=== PATIENT | female | born 1955 | race American Indian/Alaskan Native ===

== ENCOUNTER 2016-07-24 09:34 | Emergency (ER) | payer MEDICAID, OTHER, SELFPAY ==
[2016-07-24 09:39] VITALS: TEMP 98.3; BMI 39.0
--- NOTE | 2016-07-24 13:02 | C.PDOC ---
Time Seen by Provider: 07/24/16 09:58 Chief Complaint (Nursing): ENT Problem Past Medical History Vital Signs: Last Vital Signs Temp 98.3 F 07/24/16 09:39 Pulse 82 07/24/16 09:39 Resp 18 07/24/16 09:39 BP 159/84 H 07/24/16 09:39 Pulse Ox 100 07/24/16 09:39 - Medical History PMH: Asthma, HTN - Social History Hx Alcohol Use: No Hx Substance Use: No - Immunization History Hx Tetanus Toxoid Vaccination: No Hx Influenza Vaccination: No Hx Pneumococcal Vaccination: No ED Course And Treatment O2 Sat by Pulse Oximetry: 100 Disposition Counseled Patient/Family Regarding: Diagnosis, Need For Followup - Disposition Referrals: [facility] [Outside] [facility] [Outside] Chalo Ferreira MD [Staff Provider] - Disposition: HOME/ ROUTINE Disposition Time: 13:00 Condition: GOOD Prescriptions: Carbamide Peroxide [Debrox 15 Ml] 7 drop OT BID #1 bottle Instructions: Cerumen Impaction (ED) - Clinical Impression Clinical Impression: Cerumen impaction
--- NOTE | 2016-07-24 13:03 | C.PDOC ---
History Of Present Illness 60 yr old female presents to the ER with complaints of decrease hearing in the right ear for past 1 week. Patient reports she is currently on ciprodex, naproxen and augmentin for an ear infection since 07/15. Patient denies fever, ear pain, ear discharge, neck pain or headache. Time Seen by Provider: 07/24/16 09:58 Chief Complaint (Nursing): ENT Problem History Per: Patient History/Exam Limitations: None Onset/Duration Of Symptoms: Persistent (1 week) Current Symptoms Are (Timing): Still Present Quality (Ear): denies: Discharge Past Medical History Reviewed: Historical Data, Nursing Documentation, Vital Signs Vital Signs: Last Vital Signs Temp 98.3 F 07/24/16 09:39 Pulse 84 07/24/16 13:10 Resp 16 07/24/16 13:10 BP 144/85 07/24/16 13:10 Pulse Ox 98 07/24/16 13:10 - Medical History PMH: Asthma, HTN Family History: States: No Known Family Hx - Social History Hx Alcohol Use: No Hx Substance Use: No - Immunization History Hx Tetanus Toxoid Vaccination: No Hx Influenza Vaccination: No Hx Pneumococcal Vaccination: No Review Of Systems Review Of Systems: ROS cannot be obtained secondary to pt's inabilty to answer questions. Constitutional: Negative for: Fever ENT: Positive for: Other ((+) Decrease hearing in right ear ). Negative for: Ear Pain, Ear Discharge Musculoskeletal: Negative for: Neck Pain Neurological: Negative for: Headache Physical Exam - Physical Exam Appears: Well, Non-toxic, No Acute Distress Skin: Warm, Dry, No Rash Head: Atraumatic, Normacephalic Ear(s): Left: Normal, Right: TM Obscured By Wax Oral Mucosa: Moist Throat: Normal, No Erythema, No Exudate, No Drooling Neck: Normal, Normal ROM, Supple Lymphatic: No Adenopathy Chest: Symmetrical, No Tenderness Cardiovascular: Rhythm Regular, No Murmur Extremity: Normal ROM, No Swelling Neurological/Psych: Oriented x3, Normal Speech ED Course And Treatment O2 Sat by Pulse Oximetry: 100 Disposition Counseled Patient/Family Regarding: Diagnosis, Need For Followup - Disposition Referrals: [facility] [Outside] [facility] [Outside] Chalo Ferreira MD [Staff Provider] - Disposition: HOME/ ROUTINE Disposition Time: 13:00 Condition: GOOD Prescriptions: Carbamide Peroxide [Debrox 15 Ml] 7 drop OT BID #1 bottle Instructions: Cerumen Impaction (ED) - Clinical Impression Clinical Impression: Cerumen impaction - 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 - Scribe Statement The provider has reviewed the documentation as recorded by the Scribe All medical record entries made by the Scribe were at my direction and personally dictated by me. I have reviewed the chart and agree that the record accurately reflects my personal performance of the history, physical exam, medical decision making, and the department course for this patient. I have also personally directed, reviewed, and agree with the discharge instructions and disposition.
[2016-07-24 13:10] VITALS: BP 144/85; PULSE 84; RESP 16
[2016-07-26 09:21] VITALS: O2SAT 100
== END 2016-07-24 13:10 | disposition home or self-care (01) ==
LOC: C.ER 09:34
DX: H61.21 Impacted cerumen, right ear (principal)